=== PATIENT | male | born 1970 | race Two or more races ===

== ENCOUNTER 2018-12-26 20:22 | Emergency (ER) | payer MEDICAID ==
[~2018-12-26] VITALS: Ht 165.1 cm; Wt 88.5 kg
[~2018-12-26 20:22] MED LIST: GLYB5TAB8 PO; METF-370 PO
[2018-12-26 20:44] VITALS: BP 136/81
[2018-12-26 21:32] LABS: Urine Bacteria NONE SEEN /hpf (None Seen); Urine Blood Negative /uL (Negative); Urine Specific Gravity 1.002 (1.001-1.035); Urine WBC <1 /hpf (0 - 3)
[2018-12-26 21:48] LABS: Amphetamine Screen, Urine NEGATIVE (NEGATIVE); Barbiturate Scree,Urine NEGATIVE (NEGATIVE); Benzodiazephine Screen, Urine NEGATIVE (NEGATIVE); Cannabinoid Screen, Urine NEGATIVE (NEGATIVE); Cocaine Screen, Urine NEGATIVE (NEGATIVE); Opiate Scree,Urine NEGATIVE (NEGATIVE); Phencyclidine Screen, Urine NEGATIVE (NEGATIVE)
== END 2018-12-27 00:55 | disposition left against medical advice (07) ==
LOC: EDBD 20:22 → ER 20:22
DX: Z04.3 Encounter for examination and observation following other accident (principal); Z53.21 Procedure and treatment not carried out due to patient leaving prior to being seen by health care provider; W19.XXXA Unspecified fall, initial encounter; Y93.89 Activity, other specified; Y92.89 Other specified places as the place of occurrence of the external cause; Y99.8 Other external cause status
CPT/HCPCS: 80307; 81001; 93005

== ENCOUNTER 2021-04-20 11:40 | Inpatient (IN) | payer OTHER, MEDICAID ==
[~2021-04-20] VITALS: Ht 165.1 cm; Wt 72.3 kg
[2021-04-20 15:27] LABS: Red Cell Distribution Width 14.3 % (11.8-14.3)
[2021-04-20 15:39] LABS: Albumin 3.8 g/dL (3.4-5.0); Calcium 9.1 mg/dL (8.5-10.1); Magnesium 2.3 mg/dL (1.6-2.6); Potassium 4.6 mmol/L (3.5-5.1)
[2021-04-20 15:40] LABS: Hematocrit 48.4 % (41.0-53.0); Hemoglobin 16.8 g/dL (13.5-17.5); Mean Corpuscular Hemoglobin 32.1 pg (28.0-32.0); Mean Corpuscular Hgb Conc. 34.6 g/dL (32.0-36.0); Mean Corpuscular Volume 92.6 fL (80.0-100.0); Red Blood Cells 5.23 10^6/uL (4.5-5.90); White Blood Cell 17.2 10^3/uL (4.4-10.8)
[2021-04-20 15:46] LABS: BUN/Creatinine Ratio 15.2; Bilirubin, Total 0.6 mg/dL (0.2-1.0); Total Protein 7.6 g/dL (6.4-8.2)
[2021-04-20 15:53] LABS: Basophils % (manual) 0 (0.0-2.0); Blast Cells 0; Metamyelocytes % 0; Myelocytes % 0; Promyelocytes % 0; Reactive Lymphocytes 0
[2021-04-20 16:34] LABS: Band Neutrophils % (manual) 26; Eosinophils % (manual) 2 (0-7); Lymphocytes % (manual) 9 (10.0-50.0); Monocytes % (manual) 2 (0-12)
[2021-04-20] MEDS ORDERED: DEXTROSE (50%) 50ML SYRG IV PRN (18:15)
[2021-04-20] MEDS ORDERED: MORPHINE SULFATE 4 MG/ML SYR/VIAL IV PRN (18:15)
[2021-04-20] MEDS ORDERED: AZITHROMYCIN 500MG/ 250ML 250 ML IV ONE (18:15)
[2021-04-20] MEDS ORDERED: HYDROcodone-ACET 5/325MG TAB PO PRN (18:15)
[2021-04-20] MEDS ORDERED: SODIUM CHLORIDE 0.9% 1,000 ML IV SCH (18:15)
[2021-04-20] MEDS ORDERED: ONDANSETRON HCL 4 MG/2 ML VIAL IV PRN (18:15)
[2021-04-20] MEDS ORDERED: DOCUSATE SOD 100 MG CAP PO PRN (18:15)
[2021-04-20] MEDS ORDERED: ACETAMINOPHEN 325 MG TAB PO PRN (18:15)
[2021-04-20] MEDS ORDERED: MORPHINE SULFATE INJECTION 2 MG/ML SYRG IV PRN (19:00)
[2021-04-20] MEDS ORDERED: NITROGLYCERIN 0.4 MG SL TAB SL PRN (19:00)
[2021-04-20] MEDS ORDERED: methylPREDNISolone SOD SUCC 125 MG/2 ML VL IM ONE (19:30)
[2021-04-20] MEDS ORDERED: ALBUTEROL SULF 2.5 MG/0.5ML(0.5%) NEB SOLN NEB PRN (19:45)
[2021-04-20] MEDS ORDERED: IPRATROPIUM BROM 0.5 MG/2.5ML INH SOL NEB PRN (19:45)
[2021-04-20 20:26] VITALS: BP 124/84
[2021-04-20 21:35] LABS: Amphetamine Screen, Urine POSITIVE (NEGATIVE); Barbiturate Scree,Urine NEGATIVE (NEGATIVE); Benzodiazephine Screen, Urine NEGATIVE (NEGATIVE); Cannabinoid Screen, Urine NEGATIVE (NEGATIVE); Cocaine Screen, Urine NEGATIVE (NEGATIVE); Phencyclidine Screen, Urine NEGATIVE (NEGATIVE)
[2021-04-20 21:43] LABS: Opiate Scree,Urine NEGATIVE (NEGATIVE)
[2021-04-20] MEDS ORDERED: ASCORBIC ACID 500 MG TAB PO SCH (22:00)
[2021-04-20] MEDS ORDERED: FAMOTIDINE (10MG/ML) 2ML VL IV SCH (22:00)
[2021-04-20] MEDS: ACCU-CHEK COMFORT CURVE STRIP VI SCH (22:00)
[2021-04-20] MEDS ORDERED: InsuLIN REG 1unit/0.01ml Soln (100units/ml) SC SCH (22:00)
[2021-04-21] MEDS ORDERED: PNEUMOCOCCAL VACC POLYS 25 MCG/0.5 ML VIAL IM ONE (01:00)
[2021-04-21] MEDS ORDERED: METO25TA93 PO (01:02)
[2021-04-21] MEDS ORDERED: ATOR10TA PO (01:02)
[2021-04-21] MEDS ORDERED: ASPI-543 PO (01:02)
[2021-04-21] MEDS ORDERED: GABA100C9 PO (01:02)
[2021-04-21] MEDS ORDERED: SEMA2INJ SC (01:02)
[2021-04-21] MEDS ORDERED: CLOP75TA28 PO (01:02)
[2021-04-21 01:23] VITALS: BP 121/83
[2021-04-21 05:00] VITALS: BP 130/73
[2021-04-21] MEDS ORDERED: methylPREDNISolone SOD SUCC 40 MG/ML VL IV SCH (06:00)
[2021-04-21 06:13] LABS: Basophils # (auto) 0 10 ^3/uL (0-0.2); Basophils % (auto) 0.1 % (0.0-2.0); Eosinophils # (auto) 0 10 ^3/uL (0-0.8); Hematocrit 44.5 % (41.0-53.0); Hemoglobin 15.8 g/dL (13.5-17.5); Lymphocytes # (auto) 0.5 10 ^3/uL (0.4-5.4); Lymphocytes % (auto) 3.6 % (10.0-50.0); Mean Corpuscular Hemoglobin 32.9 pg (28.0-32.0); Mean Corpuscular Hgb Conc. 35.5 g/dL (32.0-36.0); Mean Corpuscular Volume 92.7 fL (80.0-100.0); Monocytes # (auto) 0.2 10 ^3/uL (0-1.3); Monocytes % (auto) 1.3 % (0.0-12.0); Neutrophils # (auto) 13.9 10 ^3/uL (1.6-8.6); Nucleated Red Blood Cells % 0.1 %; Red Cell Distribution Width 13.9 % (11.8-14.3); White Blood Cell 14.6 10^3/uL (4.4-10.8)
[2021-04-21] MEDS: ACCU-CHEK COMFORT CURVE STRIP VI SCH (06:39)
[2021-04-21 06:44] LABS: Potassium 4.3 mmol/L (3.5-5.1)
[2021-04-21 06:57] LABS: Albumin 3.3 g/dL (3.4-5.0); BUN/Creatinine Ratio 14.9; Bilirubin, Total 0.9 mg/dL (0.2-1.0); Calcium 8.8 mg/dL (8.5-10.1); Total Protein 7.1 g/dL (6.4-8.2)
[2021-04-21] MEDS ORDERED: InsuLIN REG 1unit/0.01ml Soln (100units/ml) SC SCH (07:00)
[2021-04-21] MEDS ORDERED: AZITHROMYCIN 500MG/ 250ML 250 ML IV SCH (10:00)
[2021-04-21] MEDS ORDERED: ZINC SULFATE 220mg CAP or TAB PO SCH (10:00)
[2021-04-21] MEDS ORDERED: MULTIPLE VITAMIN TAB PO SCH (10:00)
[2021-04-21] MEDS ORDERED: ENOXAPARIN SOD 40 MG/0.4 ML SYRINGE SC SCH (10:00)
== END 2021-04-21 09:11 | disposition left against medical advice (07) | DRG 917 ==
LOC: EDBD 11:40 → ER 11:40 → TELE 18:52 → TELE-WESTW 22:26
PROVIDERS: ADMIT Nurse Practitioner Family; ATTEND Nurse Practitioner Family
PROC: 5A09357 Assistance with Respiratory Ventilation, Less than 24 Consecutive Hours, Continuous Positive Airway Pressure (ICD-10-PCS; principal; 2021-04-20)
DX: T50.901A Poisoning by unspecified drugs, medicaments and biological substances, accidental (unintentional), initial encounter (principal); J18.9 Pneumonia, unspecified organism; J81.0 Acute pulmonary edema; R09.02 Hypoxemia; E11.65 Type 2 diabetes mellitus with hyperglycemia; E78.5 Hyperlipidemia, unspecified; Z20.822 Contact with and (suspected) exposure to COVID-19; D72.829 Elevated white blood cell count, unspecified; I10 Essential (primary) hypertension; R06.03 Acute respiratory distress; Z88.0 Allergy status to penicillin; Z88.2 Allergy status to sulfonamides; Y92.89 Other specified places as the place of occurrence of the external cause; Z53.29 Procedure and treatment not carried out because of patient's decision for other reasons
CPT/HCPCS: 36415; 71045; 80053; 80307; 80320; 82962; 83036; 83735; 83880; 84484; 85007; 85025; 85027; 93005; 94660; 96365; 96366; 96372; 99291; G0378; J1815; J3490